=== PATIENT | female | born 1970 | race Caucasian/White ===

== ENCOUNTER 2019-11-05 12:47 | Emergency (ER) | payer MEDICAID, SELFPAY ==
[~2019-11-05] VITALS: Ht 160 cm; Wt 56.7 kg
[2019-11-05 12:56] VITALS: BP 107/51
--- NOTE | 2019-11-05 13:01 | NUR ---
PT INSTRUCTED TO WAIT IN TENT
--- NOTE | 2019-11-05 13:01 | NUR ---
49 Y/O FEMALE C/O COUGH/ SUBJECTIVE FEVER X1 WEEK. PT STATES SHE TOOK A TYLENOL ONE HOUR AGO. PT IS AFEBRILE AT THIS TIME. DENIES ANY CP/SOB. RESP EVEN AND UNLABORED. VSS. DENIES ANY CONTACT WITH COVID + PTS. AMBULATORY WITH STEADY GAIT. DENIES ANY PAIN AT THIS TIME. NO PMH
--- NOTE | 2019-11-05 13:30 | NUR ---
Dwaine Toure in tent examining pt
--- NOTE | 2019-11-05 14:15 | NUR ---
COVID SWAB PERFORMED IN TENT
[2019-11-05 14:17] VITALS: BP 107/51
--- NOTE | 2019-11-05 14:18 | NUR ---
Patient discharged with v/s stable. Written and verbal after care instructions given and explained. Patient alert, oriented and verbalized understanding of instructions. Ambulatory with steady gait. All questions addressed prior to discharge. ID band removed. Patient advised to follow up with PMD. Rx of Promethazine 6.25mg and ibuprofen 800mg given. Patient educated on indication of medication including possible reaction and side effects. Opportunity to ask questions provided and answered.
== END 2019-11-05 14:18 | disposition home or self-care (01) ==
LOC: EEVIPCON 12:47 → MED 12:47
DX: U07.1 COVID-19 (principal)
CPT/HCPCS: 99283; U0003